=== PATIENT | female | born 1965 | race Hispanic/Latino ===

== ENCOUNTER → 2017-12-01 | Outpatient (RCR) | payer BC | LOC: OT 11-23 16:23 | PROVIDERS: ATTEND Specialist | DX: M77.11 Lateral epicondylitis, right elbow (principal); S16.1XXD Strain of muscle, fascia and tendon at neck level, subsequent encounter; M25.521 Pain in right elbow; M25.511 Pain in right shoulder; R53.1 Weakness | CPT/HCPCS: 97010; 97035; 97110 ×3; 97165; G0283 ==

== ENCOUNTER 2017-12-08 16:00 | Outpatient (RCR) | payer BC | END 2018-01-01 | LOC: OT 16:00 | PROVIDERS: ATTEND Specialist | DX: M77.11 Lateral epicondylitis, right elbow (principal); M25.521 Pain in right elbow; M25.511 Pain in right shoulder; S16.1XXD Strain of muscle, fascia and tendon at neck level, subsequent encounter; R53.1 Weakness | CPT/HCPCS: 97139 ==